=== PATIENT | female | born 1985 | race Caucasian/White ===

== ENCOUNTER 2018-08-24 10:02 | Outpatient (CLI) | payer OTHER | END 2018-08-24 10:13 | disposition home or self-care (01) | LOC: LAB 10:02 | DX: N39.0 Urinary tract infection, site not specified (principal); E78.2 Mixed hyperlipidemia; E56.9 Vitamin deficiency, unspecified; E55.9 Vitamin D deficiency, unspecified; R97.1 Elevated cancer antigen 125 [CA 125]; R53.1 Weakness; E66.01 Morbid (severe) obesity due to excess calories; Z11.3 Encounter for screening for infections with a predominantly sexual mode of transmission; R82.79 Other abnormal findings on microbiological examination of urine; E03.8 Other specified hypothyroidism; E16.1 Other hypoglycemia ==

== ENCOUNTER 2019-02-20 11:17 | Emergency (ER) | payer OTHER ==
[~2019-02-20] VITALS: Ht 157.5 cm; Wt 72.6 kg
[2019-02-20] MEDS ORDERED: KEPPRA1000 MG (11:56)
== END 2019-02-20 14:31 | disposition home or self-care (01) ==
LOC: ER 11:17
DX: H02.841 Edema of right upper eyelid (principal); T78.49XA Other allergy, initial encounter

== ENCOUNTER 2019-06-29 08:17 | Emergency (ER) | payer OTHER ==
[~2019-06-29] VITALS: Ht 167.6 cm; Wt 78.5 kg
[~2019-06-29 08:17] MED LIST: KEPPRA1000 MG
== END 2019-06-29 18:03 | disposition home or self-care (01) ==
LOC: ER 08:17
DX: D25.9 Leiomyoma of uterus, unspecified (principal); R10.2 Pelvic and perineal pain